=== PATIENT | female | born 1955 | race Caucasian/White ===

== ENCOUNTER → 2016-08-31 | Outpatient (CLI) | payer OTHER ==
--- NOTE | 2016-08-31 17:18 | KCIC ---
MRI of the lumbar spine without contrast 08/31/2016 CLINICAL HISTORY: Lumbar radiculopathy. TECHNIQUE: Unenhanced T1-weighted and T2-weighted sagittal and axial and inversion recovery sagittal images of the lumbar spine were obtained. FINDINGS: Mild lateral curvature of the lumbar spine is seen convex to the right. Degenerative signal changes are seen involving all of the disks of the lumbar spine. Degenerative signal changes are seen within the marrow surrounding these discs. The conus medullaris is normal morphology, position, and signal characteristics. A 1.8 cm rounded high signal intensity lesion is seen on the T2-weighted images involving the lower pole of the right kidney. This likely represents a cyst. At the L1-2 and L2-3 disc spaces there are are mild generalized disc bulges. Degenerative changes are seen involving the facet joints bilaterally. These findings do not result in significant central spinal canal or neural foraminal stenosis. At the L3-4 disc space there is a mild generalized disc bulge. Degenerative changes are seen involving the facet joints bilaterally. There is mild to moderate ligamentum flavum hypertrophy bilaterally. These findings when combined result in mild central spinal canal stenosis. No neural foraminal stenosis is seen. At the L4-5 disc space there is a moderate generalized disc bulge. Superimposed on this disc bulge is a focal central disc protrusion. This measures 3 mm in AP diameter. Degenerative changes are seen involving the facet joints bilaterally. There is moderate ligamentum flavum hypertrophy bilaterally. There is prominence of the posterior epidural fat. These findings when combined result in severe central spinal canal stenosis. Mild bilateral neural foraminal stenosis is seen. At the L5-S1 disc space there is a mild generalized disc bulge. This is eccentric to the left. Degenerative changes are seen involving the facet joints bilaterally. There is moderate ligamentum flavum hypertrophy bilaterally. These findings do not result in significant central spinal canal stenosis. Mild left neural foraminal stenosis is seen. The right neural foramen is patent. IMPRESSION: The changes of degenerative disc disease are seen throughout the lumbar spine. These findings result in mild central spinal canal stenosis at L3-4 and severe central spinal canal stenosis at L4-5. Mild bilateral neural foraminal stenosis is seen at L4-5. Mild left neural foraminal stenosis is seen at L5-S1. Electronically signed by: Carlos Enrique Ryan MD (08/31/2016 5:15 PM) [id number]
--- NOTE | 2016-08-31 17:24 | KCIC ---
MRI of the brain without contrast 08/31/2016 Clinical History: Amnesia and confusion with memory loss. Technique: Unenhanced T1-weighted sagittal and axial, T2-weighted axial and coronal and FLAIR, gradient echo and diffusion-weighted axial images of the brain were obtained. Findings: No previous imaging studies are available for comparison. There is mild generalized parenchymal atrophy. Patchy and small scattered areas of increased signal intensity are seen within the periventricular and subcortical white matter of both cerebral hemispheres along with the stefania on the FLAIR and T2-weighted images consistent with areas of very mild small vessel ischemic disease. No acute parenchymal abnormality is seen. No extra-axial fluid collection is seen. There is no MRI evidence of acute ischemia/infarction. Mild mucosal thickening in seen scattered throughout the paranasal sinuses. A 1.8 cm mucous retention cyst is seen involving the left maxillary sinus. Normal flow voids are seen within the major vascular structures surrounding the brain parenchyma. Impression: No acute parenchymal abnormality is seen. Electronically signed by: Carlos Enrique Ryan MD (08/31/2016 5:21 PM) [id number]
== END | disposition home or self-care (01) ==
LOC: KCIC MRI 15:36
PROVIDERS: ATTEND Family Medicine
DX: M51.16 Intervertebral disc disorders with radiculopathy, lumbar region (principal); M48.06 Spinal stenosis, lumbar region; M99.53 Intervertebral disc stenosis of neural canal of lumbar region; R00.2 Palpitations; R41.3 Other amnesia; G47.51 Confusional arousals; I67.9 Cerebrovascular disease, unspecified
CPT/HCPCS: 70551; 72148